=== PATIENT | male | born 1960 | race Caucasian/White ===

== ENCOUNTER 2020-10-18 13:57 | Emergency (ER) | payer OTHER ==
[~2020-10-18] VITALS: Ht 177.8 cm; Wt 113.6 kg
[2020-10-18] MEDS ORDERED: AMLO5TAB66 PO (14:05)
[2020-10-18 15:45] LABS: BASOPHILS % (AUTO) 0.7 % (0.0-2.0); EOSINOPHILS % (AUTO) 1.2 % (1.0-6.0); HEMOGLOBIN 15.6 g/dL (13.5-17.5); LYMPHOCYTES # (AUTO) 1.7 K/uL (1.0-4.8); MEAN CORPUSCULAR HGB CONC 33.2 G/dL (31.0-37.0); MEAN CORPUSCULAR VOLUME 90 fL (80-100); MONOCYTES # (AUTO) 0.7 K/uL (0.1-1.0); MONOCYTES % (AUTO) 7.2 % (2.0-9.0); NEUTROPHILS # (AUTO) 7.3 K/uL (1.8-7.7); NEUTROPHILS % (AUTO) 73.9 % (40.0-70.0); PLATELET COUNT (AUTO) 339 K/uL (150-450); RED BLOOD CELL COUNT(AUTO) 5.21 MIL/uL (4.50-5.90); RED CELL DISTRIBUTION WIDTH 13.2 % (11.5-14.5)
[2020-10-18 17:19] LABS: ANION GAP 10 mmol/L (8-16); CALCIUM, TOTAL 9.2 mg/dL (8.8-10.5); CARBON DIOXIDE 27 mmol/L (22-29); CHLORIDE 103 mmol/L (98-107); CREATININE 0.79 mg/dL (0.60-1.30); GLOMERULAR FILTR. RATE CALC > 60 mL/min (>60); GLUCOSE,RANDOM 134 mg/dL (70-110); POTASSIUM 4.5 mmol/L (3.5-5.1); SODIUM SERUM 140 mmol/L (136-145); UREA NITROGEN, BLOOD 16 mg/dL (7-18)
[2020-10-18 17:45] VITALS: BP 150/80
== END 2020-10-18 17:55 | disposition home or self-care (01) ==
LOC: EMS 14:45
DX: R42 Dizziness and giddiness (principal); R61 Generalized hyperhidrosis; I10 Essential (primary) hypertension
CPT/HCPCS: 70450; 80048; 84484; 85025; 93005; 99285